=== PATIENT | female | born 1995 ===

== ENCOUNTER 2018-07-25 13:39 | Emergency (ER) | payer OTHER ==
[~2018-07-25] VITALS: Ht 165.1 cm; Wt 58.1 kg
[~2018-07-25 13:39] MED LIST: CEFUROXIME250 MG PO; KETO10TA2 PO
[2018-07-25] MEDS ORDERED: AVIANE-28 TABL1 EACH (14:42)
== END 2018-07-25 18:56 | disposition home or self-care (01) ==
LOC: ER 13:39
DX: L02.412 Cutaneous abscess of left axilla (principal); L02.411 Cutaneous abscess of right axilla; B34.9 Viral infection, unspecified; R51 Headache

== ENCOUNTER 2018-08-25 09:26 | Emergency (ER) | payer OTHER ==
[~2018-08-25] VITALS: Ht 165.1 cm; Wt 59.0 kg
[~2018-08-25 09:26] MED LIST changes: +AVIANE-28 TABL1 EACH
== END 2018-08-25 22:52 | disposition home or self-care (01) ==
LOC: ER 09:26
DX: N13.2 Hydronephrosis with renal and ureteral calculous obstruction (principal); R10.31 Right lower quadrant pain

== ENCOUNTER 2018-10-03 02:22 | Emergency (ER) | payer OTHER ==
[~2018-10-03] VITALS: Ht 165.1 cm; Wt 59.0 kg
[2018-10-03] MEDS ORDERED: CIPRO250 MG (02:48)
== END 2018-10-03 10:22 | disposition home or self-care (01) ==
LOC: ER 02:22
DX: K29.70 Gastritis, unspecified, without bleeding (principal); R50.9 Fever, unspecified